=== PATIENT | female | born 1970 | race Caucasian/White ===

== ENCOUNTER 2016-08-13 18:37 | Emergency (ER) | payer OTHER ==
[2016-08-13 19:13] VITALS: BP 117/76; PULSE 78; RESP 16; TEMP 98.6
[2016-08-13] MEDS ORDERED: KETOROLAC 60 MG/2 ML VIAL IM STA (20:09)
[2016-08-13] MEDS ORDERED: ORPHENADRINE 30 MG/ML 2 ML VIAL IM STA (20:09)
--- NOTE | 2016-08-13 20:12 | ED ---
Extremity Problem HPI - General Chief complaint: Extremity Problem,Nontraumatic Stated complaint: RT HIP PAIN, UNABLE TO STAND Time Seen by Provider: 08/13/16 19:50 Source: patient, RN notes reviewed, old records reviewed Mode of arrival: wheelchair Limitations: no limitations - History of Present Illness Initial comments: Patient is a 46-year-old female presenting to the emergency department to plan of right hip pain. Patient presents that it has been worse with ambulation. Patient states that she's had a history of chronic hip pain but has not had any recent imaging studies. She reports that she's had a few steroid injections but does not help. Patient states that she was walking today and the pain brought her to her knees. She denies any difficulty urinating or bowel movements. - Related Data Home Medications Medication Instructions Recorded Confirmed Pantoprazole Sodium [Protonix] 40 mg PO DAILY 10/14/15 08/13/16 Venlafaxine HCl [Effexor] 37.5 mg PO DAILY 10/14/15 08/13/16 Previous Rx's Medication Instructions Recorded Cyclobenzaprine [Flexeril] 10 mg PO TID #20 tab 08/13/16 HYDROcodone/APAP 10-325MG [[place] 1 tab PO Q6H PRN #15 tab 08/13/16 10-325] Ibuprofen [Motrin] 600 mg PO Q8HR PRN #20 tab 08/13/16 Ondansetron Odt [Zofran Odt] 4 mg PO Q12HR PRN #12 tab 08/13/16 Allergies Allergy/AdvReac Type Severity Reaction Status Date / Time Sulfa (Sulfonamide Allergy Rash/Hives Verified 08/13/16 19:13 Antibiotics) Review of Systems ROS Statement: Those systems with pertinent positive or pertinent negative responses have been documented in the HPI. ROS Other: All systems not noted in ROS Statement are negative. Past Medical History Past Medical History: Deep Vein Thrombosis (DVT), GERD/Reflux, Osteoarthritis ( OA), Pulmonary Embolus (PE) Additional Past Medical History / Comment(s): had DVt & pulmonary embolism after surgery 10 yrs. ago History of Any Multi-Drug Resistant Organisms: None Reported Past Surgical History: Tubal Ligation Additional Past Surgical History / Comment(s): recent D & C, sinus surg., ectopic , neck surgery Past Anesthesia/Blood Transfusion Reactions: No Reported Reaction Past Psychological History: Anxiety, Depression Smoking Status: Never smoker Past Alcohol Use History: Occasional Past Drug Use History: None Reported - Past Family History Mother Family Medical History: No Reported History General Exam - General Exam Comments Initial Comments: Well-appearing 46-year-old female. No distress. Limitations: no limitations General appearance: alert, in no apparent distress Head exam: Present: atraumatic, normocephalic, normal inspection Eye exam: Present: normal appearance, PERRL, EOMI. Absent: scleral icterus, conjunctival injection, periorbital swelling ENT exam: Present: normal exam, mucous membranes moist Neck exam: Present: normal inspection. Absent: tenderness, meningismus, lymphadenopathy Respiratory exam: Present: normal lung sounds bilaterally. Absent: respiratory distress, wheezes, rales, rhonchi, stridor Cardiovascular Exam: Present: regular rate, normal rhythm, normal heart sounds. Absent: systolic murmur, diastolic murmur, rubs, gallop, clicks GI/Abdominal exam: Present: soft, normal bowel sounds. Absent: distended, tenderness, guarding, rebound, rigid Extremities exam: Present: normal inspection, full ROM, normal capillary refill , other (tender over right hip and IT band. ). Absent: tenderness, pedal edema , joint swelling, calf tenderness Back exam: Present: normal inspection Neurological exam: Present: alert, oriented X3, CN II-XII intact Psychiatric exam: Present: normal affect, normal mood Skin exam: Present: warm, dry, intact, normal color. Absent: rash Course Vital Signs 08/13/16 19:09 Temperature 98.6 F Pulse Rate 78 Respiratory 16 Rate Blood Pressure 117/76 O2 Sat by Pulse 100 Oximetry Medical Decision Making - Medical Decision Making Patient is a 46-year-old female presenting to the emergency department to plan of right hip pain. Patient presents that it has been worse with ambulation. Patient states that she's had a history of chronic hip pain but has not had any recent imaging studies. She reports that she's had a few steroid injections but does not help. Patient states that she was walking today and the pain brought her to her knees. She denies any difficulty urinating or bowel movements. X-rays were reviewed. Negative for severe arthritis. Patient will be started on muscle relaxers and pain medication. Discussed following up with orthopedic physician. Patient received treatment plan will comply. Return parameters were discussed. - Radiology Data Radiology results: report reviewed negative hip exam and pelvis. Disposition Clinical Impression: Chronic right hip pain Disposition: HOME SELF-CARE Condition: Good Additional Instructions: Patient advised to rest, follow-up with orthopedic physician. Patient advised to take pain medication muscle relaxers as directed. Return to the emergency department if any alarming signs or symptoms occur. Prescriptions: Cyclobenzaprine [Flexeril] 10 mg PO TID #20 tab HYDROcodone/APAP 10-325MG [[place] 10-325] 1 tab PO Q6H PRN #15 tab PRN Reason: Pain Ibuprofen [Motrin] 600 mg PO Q8HR PRN #20 tab PRN Reason: Pain Ondansetron Odt [Zofran Odt] 4 mg PO Q12HR PRN #12 tab PRN Reason: Nausea Referrals: Leelee Gtz MD [Primary Care Provider] - 1-2 days Ilir Sanon MD [STAFF PHYSICIAN] - 1-2 days Time of Disposition: 21:10
--- NOTE | 2016-08-13 21:24 | XR ---
EXAMINATION TYPE: XR Hip RT and AP Pelvis DATE OF EXAM: 08/13/2016 COMPARISON: NONE HISTORY: Hip pain TECHNIQUE: A single AP view of the pelvis is obtained. Two views of the right hip are obtained. FINDINGS: The pelvic ring is intact. Proximal femur and hip joint are intact. Right hip joint space i s fairly normal. Sacroiliac joints appear normal. IMPRESSION: Negative pelvis and right hip exam.
== END 2016-08-13 21:22 | disposition home or self-care (01) ==
LOC: EC 18:37
DX: G89.29 Other chronic pain (principal); M25.551 Pain in right hip; K21.9 Gastro-esophageal reflux disease without esophagitis; F32.9 Major depressive disorder, single episode, unspecified; F41.9 Anxiety disorder, unspecified; Z79.899 Other long term (current) drug therapy; Z88.2 Allergy status to sulfonamides
CPT/HCPCS: 73502; 99284; 96372 ×2; J2360; J1885

== ENCOUNTER → 2016-09-08 | Outpatient (CLI) | payer OTHER ==
--- NOTE | 2016-09-08 12:34 | MR ---
EXAMINATION TYPE: MR lumbar spine wo con DATE OF EXAM: 09/08/2016 COMPARISON: NONE HISTORY: Low back pain per order. Right-sided back and hip pain per patient. TECHNIQUE: Multiplanar, multisequence imaging of the lumbar spine is performed without IV contrast. FINDINGS: Survey images shows levoconvex scoliosis centered near thoracolumbar junction. Sagittal cristian ges of the lumbar spine show vertebral body heights to appear satisfactory. There is loss of normal l umbar lordosis on sagittal images with straightening identified. There is multilevel disc desiccation with mild to moderate disc space narrowing. Posterior disc herniations are present mid to lower lumb ar levels on sagittal images. The conus medullaris is normal in position and signal ending at T12-L1 disc space level. There is some heterogeneous diminished T1 and increased T2 signal consistent with Modic type I degenerative change centered at right L2-L3 level. Mild multilevel anterior spurring is present. Axial images show the T12-L1 and L1-L2 levels to appear within normal limits. Axial images at L2-L3 level show mild broad disc bulge mildly effacing anterior thecal sac with mild right-sided facet degenerative changes. There is mild right-sided neural foraminal narrowing. Left-si ded neural foramen is patent. Axial images at the L3-L4 level show mild facet degenerative changes bilaterally. There is broad-base d posterior disc protrusion mildly effacing anterior thecal sac. There is mild right-sided neural for aminal narrowing. Left-sided neural foramen is patent. Axial images L4-L5 level show mild facet degenerative changes and ligamentum flavum hypertrophy with minimal effacement of the posterior lateral thecal sac. There is mild broad disc bulge mildly effacin g anterior thecal sac. There is mild bilateral anterior inferior neural foraminal narrowing at this l evel identified. Axial images at L5-S1 level show mild facet degenerative changes bilaterally. There is central disc p rotrusion seen but spinal canal is preserved. Bilateral neural foramina are patent. IMPRESSION: Levoconvex scoliosis with multilevel degenerative changes in the mid to lower lumbar spin e as detailed above.
== END | disposition home or self-care (01) ==
LOC: RADMRIMAIN 11:35
PROVIDERS: ATTEND Physical Medicine & Rehabilitation
DX: M47.816 Spondylosis without myelopathy or radiculopathy, lumbar region (principal); M41.86 Other forms of scoliosis, lumbar region
CPT/HCPCS: 72148

== ENCOUNTER 2020-12-11 19:33 | Emergency (ER) | payer OTHER ==
--- NOTE | 2020-12-11 21:19 | ED ---
General Adult HPI - General Chief complaint: Extremity Problem,Nontraumatic Stated complaint: L Leg Pain,Hx Blood Clots Time Seen by Provider: 12/11/20 20:07 Source: patient Mode of arrival: wheelchair Limitations: no limitations - History of Present Illness Initial comments: 50-year-old female with a past medical history of DVT, PE, GERD presents to the emergency room for a chief complaint of left leg pain. Patient reports she has had posterior left leg pain that started after getting out of the car today. Patient had an [address] Patient states that she has a history of blood clot after surgery 10 years ago and wants to make sure she does not have another. Patient states she did start on hormone therapy for weight loss and was supposed to be taking aspirin daily given her history of blood clots however hasn't been doing so.patient states the pain has improved and is gone while she keeps her leg still but hurts to move. Patient has no other complaints at this time including shortness of breath, chest pain, abdominal pain, nausea or vomiting, headache, or visual changes. - Related Data Home Medications Medication Instructions Recorded Confirmed Pantoprazole Sodium [Protonix] 40 mg PO DAILY 10/14/15 08/13/16 Venlafaxine HCl [Effexor] 37.5 mg PO DAILY 10/14/15 08/13/16 Previous Rx's Medication Instructions Recorded Cyclobenzaprine [Flexeril] 10 mg PO TID #20 tab 08/13/16 HYDROcodone/APAP 10-325MG [[place] 1 tab PO Q6H PRN #15 tab 08/13/16 10-325] Ibuprofen [Motrin] 600 mg PO Q8HR PRN #20 tab 08/13/16 Ondansetron Odt [Zofran Odt] 4 mg PO Q12HR PRN #12 tab 08/13/16 Allergies Allergy/AdvReac Type Severity Reaction Status Date / Time Sulfa (Sulfonamide Allergy Rash/Hives Verified 12/11/20 19:46 Antibiotics) Review of Systems ROS Statement: Those systems with pertinent positive or pertinent negative responses have been documented in the HPI. ROS Other: All systems not noted in ROS Statement are negative. Past Medical History Past Medical History: Deep Vein Thrombosis (DVT), GERD/Reflux, Osteoarthritis (OA), Pulmonary Embolus (PE) Additional Past Medical History / Comment(s): had DVt & pulmonary embolism after surgery 10 yrs. ago History of Any Multi-Drug Resistant Organisms: None Reported Past Surgical History: Tubal Ligation Additional Past Surgical History / Comment(s): recent D & C, sinus surg., ectopic , neck surgery Past Anesthesia/Blood Transfusion Reactions: No Reported Reaction Past Psychological History: Anxiety, Depression Smoking Status: Never smoker Past Alcohol Use History: Occasional Past Drug Use History: None Reported - Past Family History Mother Family Medical History: No Reported History General Exam Limitations: no limitations General appearance: alert, in no apparent distress Head exam: Present: atraumatic Eye exam: Present: normal appearance, PERRL, EOMI. Absent: scleral icterus, conjunctival injection ENT exam: Present: normal exam, mucous membranes moist Neck exam: Present: normal inspection, full ROM. Absent: tenderness Respiratory exam: Present: normal lung sounds bilaterally. Absent: respiratory distress, wheezes Cardiovascular Exam: Present: regular rate, normal rhythm, normal heart sounds Extremities exam: Present: normal capillary refill (Capillary refill less than 2 seconds right lower extremity, PT DP pulses present on Doppler.), calf tenderness (mild tenderness in the posterior calf, no swelling or redness), other Course Vital Signs 12/11/20 19:46 Temperature 97.8 F Pulse Rate 86 Respiratory 18 Rate Blood Pressure 109/73 O2 Sat by Pulse 98 Oximetry Medical Decision Making - Medical Decision Making Ultrasound is negative for DVT. Suspect pain is musculoskeletal in nature given it hurts with movement. Neurovascular status intact. Patient can be discharged home to follow up with primary care. Will return here for any worsening symptoms. Disposition Clinical Impression: Leg pain, left Disposition: HOME SELF-CARE Condition: Good Instructions (If sedation given, give patient instructions): Leg Pain (ED) Additional Instructions: Please take Motrin and Tylenol for pain. Follow-up with your doctor in one to 2 days. Return to the emergency room for any worsening symptoms. Is patient prescribed a controlled substance at d/c from ED?: No Referrals: Leelee Gtz MD [Primary Care Provider] - 1-2 days Time of Disposition: 21:54
--- NOTE | 2020-12-11 21:32 | US ---
EXAMINATION TYPE: US venous doppler duplex LE LT DATE OF EXAM: 12/11/2020 8:55 PM COMPARISON: NONE CLINICAL HISTORY: pain. SIDE PERFORMED: Left TECHNIQUE: The lower extremity deep venous system is examined utilizing real time linear array sonog jonnie with graded compression, doppler sonography and color-flow sonography. VESSELS IMAGED: Common Femoral Vein Deep Femoral Vein Greater Saphenous Vein * Femoral Vein Popliteal Vein Small Saphenous Vein * Proximal Calf Veins (* superficial vessels) Left Leg: Negative for DVT IMPRESSION: No evidence of deep vein thrombosis in the left leg.
[2020-12-11 22:22] VITALS: BP 136/83; PULSE 89; RESP 22; TEMP 98
== END 2020-12-11 22:22 | disposition home or self-care (01) ==
LOC: EC 19:33
DX: M79.605 Pain in left leg (principal); Z86.718 Personal history of other venous thrombosis and embolism; Z86.711 Personal history of pulmonary embolism; Z88.2 Allergy status to sulfonamides; K21.9 Gastro-esophageal reflux disease without esophagitis; Z79.899 Other long term (current) drug therapy
CPT/HCPCS: 99283

== ENCOUNTER → 2021-02-07 | Outpatient (CLI) | payer OTHER ==
[2021-02-07 23:38] LABS: Appearance,CSF Clear; CSF Tube Number 2
[2021-02-07 23:39] LABS: Nucleated Cells, CSF 1 u/L (0-5); Red Blood Cell,CSF 1 u/L (0-10)
== END | disposition home or self-care (01) ==
LOC: LABWHC1 11:59
PROVIDERS: ATTEND Psychiatry & Neurology Neurology
DX: R90.82 White matter disease, unspecified (principal); R41.3 Other amnesia
CPT/HCPCS: 36415; 82040; 82042; 82784; 83916; 87801; 89050